=== PATIENT | female | born 1985 | race Caucasian/White ===

== ENCOUNTER 2021-11-26 19:38 | Inpatient (IN) | payer MEDICAID, SELFPAY ==
[2021-11-26] VITALS (15 sets, daily range): BP systolic 110–145; BP diastolic 59–81; PULSE 99–123; TEMP 36.4–37.6; O2SAT 97–98; BMI 27.3
[2021-11-26] MEDS: Lactated Ringers 1,000 ML 200 ML IV (19:30)
[2021-11-26] MEDS: LACTATED RINGERS 500 ML 999 ML IV (19:30)
[2021-11-26 19:52] LABS: Absolute Lymphocyte Count 0.84 X10^3/uL (0.83-4.51); Absolute Neutrophil Count 17.2 X10^3/uL (2.0-7.7); Basophil# 0.06 X10^3/uL; Basophil% 0.3 % (0-1); Eosinophil# 0.01 X10^3/uL; Eosinophils% 0.1 % (0-5); Hematocrit 40.9 % (37-47); Hemoglobin 14.1 g/dL (12.0-15.0); Lymphocyte # 0.84 X10^3/ul (0.83-4.51); Lymphocyte % 4.3 % (19-41); Mean Corp Hgb Conc 34.5 g/dL (32-36); Mean Corpuscular Hgb 33.1 pg (27.0-32.0); Monocyte% 7.1 % (0-10); NRBC Flagged by Analyzer 0 % (0-5); Neutrophil # 17.15 X10^3/uL (2.7-7.7); Neutrophil % 87.4 % (47-70); Platelet Count 185 K/mm3 (150-450); RBC Distribution Width CV 14.2 % (11.6-14.6); RBC Distribution Width SD 49.4 fl (35.1-43.9); Red Blood Count 4.26 M/mm3 (4.2-5.4); White Blood Count 19.6 K/mm3 (4.4-11.0)
[2021-11-26] MEDS: Cefazolin 2 GM in 0.9% Normal Saline 100 ML IV (20:50)
[2021-11-26] MEDS: fentaNYL-bupivacaine (epidural) 100 ML BAG EPIDURAL (21:15)
[2021-11-26 21:48] LABS: Group B Strep DNA By PCR Negative (Negative); Internal Control PASS; Probe Check PASS; Specimen Processing Control PASS
[2021-11-26 22:53] LABS: Mucous, Urine 0 SEEN /hpf (<or=2+); Squamous Epithelial Cells - UA 0 SEEN /hpf (5-10)
[2021-11-26 22:58] LABS: Color, Urine Yellow (Yellow); Glucose, Dipstick Normal (Normal); Leukocyte Esterase-Dipstick Negative /ul (Negative); Nitrite-Dipstick Negative (Negative); Occult Blood-Urine 25 /ul (Negative); Protein-Dipstick 15 mg/dl (Negative); Urine Bilirubin Dipstick Negative (Negative); Urine Clarity Clear (Clear); Urine Urobilinogen Normal (Normal)
--- NOTE | 2021-11-26 23:06 | HP.PCM.OB_ITS ---
HPI - General General Date of Admission: 11/26/21 HPI Narrative YISEL NEGRETE, is a 36 F who presents IAL after arrest of dilation at home and 8 cm for 7 hours. Patient also was requesting additional pain medication from home and therefore her janitorial tech transferred care from home to here. She denies any bleeding or loss of fluid admits good movement. She has had UTI symptoms for the last couple days and has a history of recurrent UTIs. She has not been on any antibiotics. She denies any fevers or low back pain or flank pain other than associated with contractions PFSH PFSH Medical History (Updated 11/26/21 @ 23:[address] Elba Marquez MD) Anxiety Depression Allergy/AdvReac Type Severity Reaction Status Date / Time No Known Allergies Allergy Verified 11/26/21 20:19 Surgical History (Updated 11/26/21 @ 20:38 by Jade Thomas) Hx of appendectomy Social History Smoking Status: Never smoker History Elective abortions Hx Para 0 Spontaneous abortions Hx # Term Pregnancies Ectopic pregnancies Hx # Pregnancies Multiple births # of living children NST FHR Rate Baby A Baseline: 140 Variability:: Moderate Accelerations:: 15 x 15 Decelerations:: None NST Reactive:: Yes FHR Category:: Category I Uterine Activity:: q3-5 ROS Constitutional Constitutional: Reports systems reviewed and no addt'l complaints, except as documented ENT HEENT: Reports systems reviewed and no addt'l complaints, except as documented Cardiovascular Cardiovascular: Reports systems reviewed and no addt'l complaints, except as documented Respiratory/Chest Respiratory/Chest: Reports systems reviewed and no addt'l complaints, except as documented Gastrointestinal Gastrointestinal: Reports systems reviewed and no addt'l complaints, except as d ocumented and nausea; Denies abdominal pain Genitourinary Genitourinary: Reports systems reviewed and no addt'l complaints, except as documented, burning urination, contractions Details: present and frequency (regular ), difficulty urinating, dysuria and movement Details: present Musculoskeletal Musculoskeletal: Reports systems reviewed and no addt'l complaints, except as documented Integumentary Integumentary: Reports as per HPI Neurologic Neurologic: Reports systems reviewed and no addt'l complaints, except as documented Endocrine Endocrinology: Reports systems reviewed and no addt'l complaints, except as documented Vital Signs Vital Signs Vital Signs: 11/26/21 20:27 11/26/21 20:33 11/26/21 20:33 Temperature 97.5 F L Temperature Source Pulse Rate 123 H Blood Pressure 133/77 H BP Systolic 133 BP Diastolic 77 Pulse Ox 11/26/21 20:58 11/26/21 20:58 11/26/21 21:03 Temperature Temperature Source Pulse Rate 104 H Blood Pressure 139/79 H BP Systolic 139 BP Diastolic 79 Pulse Ox 97 11/26/21 21:03 11/26/21 21:03 11/26/21 21:03 Temperature Temperature Source Pulse Rate 104 H 110 H Blood Pressure BP Systolic BP Diastolic Pulse Ox 97 11/26/21 21:09 11/26/21 21:09 11/26/21 21:08 Temperature Temperature Source Pulse Rate 105 H Blood Pressure 133/75 H BP Systolic 133 BP Diastolic 75 Pulse Ox 98 11/26/21 21:13 11/26/21 21:13 11/26/21 21:13 Temperature Temperature Source Pulse Rate 108 H Blood Pressure 122/63 H BP Systolic 122 BP Diastolic 63 Pulse Ox 98 11/26/21 21:18 11/26/21 21:18 11/26/21 21:18 Temperature Temperature Source Pulse Rate 113 H 111 H Blood Pressure 127/67 H BP Systolic 127 BP Diastolic 67 Pulse Ox 11/26/21 21:18 11/26/21 21:23 11/26/21 21:23 Temperature Temperature Source Pulse Rate 110 H Blood Pressure 123/67 H BP Systolic 123 BP Diastolic 67 Pulse Ox 97 11/26/21 21:23 11/26/21 21:23 11/26/21 21:28 Temperature Temperature Source Pulse Rate 110 H 112 H Blood Pressure BP Systolic BP Diastolic Pulse Ox 98 11/26/21 21:28 11/26/21 21:33 11/26/21 21:33 Temperature Temperature Source Pulse Rate 105 H Blood Pressure 145/75 H BP Systolic 145 BP Diastolic 75 Pulse Ox 98 11/26/21 21:33 11/26/21 21:38 11/26/21 21:38 Temperature Temperature Source Pulse Rate 109 H Blood Pressure 139/81 H BP Systolic 139 BP Diastolic 81 Pulse Ox 98 11/26/21 21:38 11/26/21 21:38 11/26/21 21:00 Temperature Temperature Source Temporal Pulse Rate 104 H Blood Pressure BP Systolic BP Diastolic Pulse Ox 98 11/26/21 22:10 11/26/21 22:10 11/26/21 21:00 Temperature 97.5 F L Temperature Source Pulse Rate 99 Blood Pressure 110/59 L BP Systolic 110 BP Diastolic 59 Pulse Ox Weight Weight: 175 lb Body Mass Index (BMI) 27.3 Physical Exam Const alert, oriented x3 and healthy appearing Constitutional Narrative: uncomfortable with contractions HEENT normocephalic and moist oral mucous membranes Head and Scalp: atraumatic Neck full ROM, no lymphadenopathy, supple and thyroid normal General: trachea midline Thyroid: thyroid normal Lymph Lymphatic: no lymphadenopathy noted Chest inspection of chest normal Resp normal respiratory effort Cardio regular rate GI normal to inspection, nondistended, normoactive bowel sounds, soft to palpation and non-tender Inspection: gravid external exam normal Bimanual Exam - Vag & Uterus: uterus non-tender Manual OB Exam: estimated gestational size appropriate, presentation cephalic, dilated, effaced and station Extremity normal to inspection General Extremity: Negative for edema Skin no rashes or lesions noted Neuro deep tendon reflexes 2+ bilaterally Motor Exam: strength 5/5 throughout and clonus absent Psych mental status grossly normal Labs Labs Labs: Blood Type B POSITIVE Antibody Screen NEGATIVE Hct 40.9 % (37-47) Hgb 14.1 g/dL (12.0-15.0) HIV 1&2 Antibody Pending Group B Strep DNA Negative (Negative) Assessment & Plan (1) : (2) Arrested labor: COMMENT: AROM clear fluid discuss pitocin if needed (3) UTI (urinary tract infection): COMMENT: ancef given in labor will switch to keflex po (4) Supervision of normal first : COMMENT: Gudelia Ryan janitorial tech, JOEY during labor 8 cm arrest PLAN: Plan Patient presents IAL, plan expectant management for , pitocin/AROM PRN if needed. Pain management: plans epidural. GBS unknown give ancef for gbs and uti treatment. Management of any complications: none I have reviewed the [facility] and made any clinically relevant updates.
[2021-11-26 23:09] LABS: Ketone-Dipstick 150 mg/dl (Negative); White Blood Cells 0-5 SEEN /hpf (0-5)
[2021-11-26 23:10] LABS: Bacteria 1+ /hpf (None Seen); Red Blood Cells-Urine 0-5 SEEN /hpf (0-5)
[2021-11-26 23:34] LABS: HIV - WCH Non-Reactive (Nonreactive)
[2021-11-27] VITALS (19 sets, daily range): BP systolic 109–137; BP diastolic 58–71; PULSE 89–131; RESP 16–17; TEMP 36.4–37; O2SAT 97–98
[2021-11-27] MEDS: Oxytocin 30 units/NS 500 ml 30 UNITS/500 ML IV.SOLN 334 UNITS IV (00:57)
--- NOTE | 2021-11-27 01:22 | OP.PCM_ITS ---
Assessment & Plan (1) Supervision of normal first : COMMENT: Gudelia Ryan director of residential services, JOEY during labor 8 cm arrest (2) UTI (urinary tract infection): COMMENT: ancef given in labor will switch to keflex po (3) Arrested labor: COMMENT: AROM clear fluid discuss pitocin if needed (4) : (5) Vaginal delivery: COMMENT: SM IAL 40 transfer in labor from director of residential services for 8 cm arrest proceeded to deliver Vaginal Delivery Maternal Presentation Maternal Presentation: Active Labor Operative Information Date of Procedure: 11/27/21 Pre-Operative Diagnosis: IAL Post-Operative Diagnosis: same Surgery / Procedure Performed: Spontaneous Vaginal Delivery Type of Anesthesia: Epidural Special Medications: none Estimated Blood Loss: 500 Fluids Replaced: crystalloid Findings Description of Procedure: Patient began pushing and delivered the head in the KE presentation. The head was delivered atraumatically . The anterior and posterior shoulders delivered without complication followed by the rest of the infant and the was placed on the maternal abdomen. Delayed cord clamping was employed for approximately 60 seconds. Cord was clamped and cut and gentle traction was applied to the cord and the placenta delivered spontaneously immediately following it was noted to be intact with three-vessel cord. The perineum and vagina were inspected and noted to have a second degree laceration repaired in the usual fashion wtih 3-0 rapide. EBL was 500 pitocin given for some atony and massage utilized. Patient and infant tolerated delivery well. Presentation: KE Amniotic Membrane Rupture Type: Artificial Amniotic Fluid Description: Clear Placental Delivery Description: Spontaneous Placenta Disposition: [facility] Cord Vessel Description: 3 Vessels Cord Entanglement: None A Gender: Male Delayed Cord Clamping: Yes Post Vaginal Delivery Medications Given After Delivery: IV Pitocin Episiotomy Description: None Laceration: Perineal Extension/lac and 2nd degree Complication Complications: None Procedures Urinary/Genital [id number]: [id number] Vaginal Delivery+ Care([facility])
--- NOTE | 2021-11-27 01:29 | DCINST_ITS ---
Discharge Instructions Diet Discharge Diet: No restrictions Activity Discharge Activity: Return to Normal Activity, May Drive, May Shower and May Take a Tub Bath (in 4 weeks) May resume sexual activity in: 6-8 weeks (after seen by OB provider) Weight Bearing Status: Full weight bearing Lifting Restrictions: none Dressing / Incision Call your doctor if you observe: Fever of 101 or Higher, Inability to urinate, Using more than 1 pad per hour (for more than 2 hours in a row or more), Shortness of breath, Dizziness, Chest pain and - (headache not controlled with tylenol, change in vision) Follow Up Care When: in 6 weeks for visit, call the office to make the appointment. If you had elevated blood pressures call the office to be seen within 1 week. Test Results: Test results from this visit will be discussed in further detail at your follow- up appointment, if applicable. Discharge Plan Admission Admit Date/Time: 11/26/21 19:38 Attending Provider: Elba Marquez Primary Care Provider: Care Physician,Sirena Primary Discharge Orders/Prescriptions Referrals / Follow Up: Care Physician,No Primary [Primary Care Provider] - Disposition Disposition (needs filled in before D/C Order can be placed): Home, Self Care
[2021-11-27] MEDS: Acetaminophen 500 MG Tablet 1000 MG PO ×2 (05:16→15:37)
[2021-11-27] MEDS: Naproxen 500 MG Tablet PO (05:16)
[2021-11-28 01:46] VITALS: BP 112/62; PULSE 93; RESP 17; TEMP 36.9; O2SAT 97
[2021-11-28 01:48] VITALS: BP 112/62; PULSE 97
[2021-11-28] MEDS: Acetaminophen 500 MG Tablet 1000 MG PO (05:24)
--- NOTE | 2021-11-28 07:42 | PCM.PN.OB ---
Subjective Subjective Patient doing well without complaints. Tolerating PO. Ambulating and voiding without difficulty. Feeding well. Denies chest pain, shortness of breath, calf pain/swelling, fevers, chills, lightheadedness. Objective Data Objective Data Vital Signs: Vital Signs Temp Pulse Resp BP Pulse Ox O2 Del Method 98.5 F 97 17 112/62 97 Room Air 11/28/21 01:46 11/28/21 01:48 11/28/21 01:46 11/28/21 01:48 11/28/21 01:46 11/28/21 01:46 Oxygen Delivery Method Room Air Weight: 175 lb Body Mass Index (BMI) 27.3 Intake & Output: Intake and Output for Last 24 Hours 11/26/21 11/27/21 11/28/21 23:59 23:59 23:59 Intake Total 610 / 610 1500.0 / 1500.0 Output Total 350 / 350 1800 / 1800 Balance 260 / 260 -300.0 / -300.0 Lab / Micro Data Result Diagrams: 11/26/21 19:30 Micro: Microbiology 11/26/21 21:40 Nasal Secretion SARS-CoV-2 Antigen (Rapid) - Final Physical Exam Const alert and oriented x3 HEENT normocephalic Eyes PERRL Neck full ROM Resp normal respiratory effort GI soft to palpation GI Narrative: FF below U Assessment & Plan (1) Vaginal delivery: COMMENT: SHARONDA IAL Keith. 41 transfer in labor from bilingual sales consultant for 8 cm arrest proceeded to deliver PLAN: Plan s/p PPD # 1 1. routine post delivery care 2. breast feeding- support given 3. rh positive 4. rubella immune 5. home today
[2021-11-28 08:05] VITALS: BP 109/63; PULSE 90; RESP 16; TEMP 36.4; O2SAT 98
[2021-11-28 08:07] VITALS: BP 109/63; PULSE 86
--- NOTE | 2021-11-28 10:55 | NURSING ---
Pt to call [facility] to schedule follow up appointment in 6 weeks. Pt okay to be discharged from social work standpoint.
== END 2021-11-28 11:20 | disposition home or self-care (01) | DRG 560 ==
PROVIDERS: Admitting Provider Obstetrics & Gynecology; Visit Provider Obstetrics & Gynecology
DX: O62.1 Secondary uterine inertia (principal); Z37.0 Single live birth; O70.1 Second degree perineal laceration during delivery; Z3A.40 40 weeks gestation of pregnancy
CPT/HCPCS: 59025; 59050; 81001; 85025; 86703; 86850; 86900; 86901; 87081; 87653; 87811; 99218; J7120; G0378

== ENCOUNTER → 2022-01-29 | Outpatient (CLI) | payer MEDICAID, SELFPAY ==
[2022-02-06 15:58] LABS: HPV APTIMA, High Risk Negative (Negative)
== END | disposition home or self-care (01) ==
LOC: LABSPEC 16:30
PROVIDERS: Referring Provider Obstetrics & Gynecology; Visit Provider Obstetrics & Gynecology
DX: Z01.419 Encounter for gynecological examination (general) (routine) without abnormal findings (principal)
CPT/HCPCS: 87624; 88175; G0145

== ENCOUNTER 2022-07-24 13:30 | Outpatient (RCR) | payer MEDICAID, SELFPAY ==
--- NOTE | 2022-05-30 14:07 | HP.PTEVAL ---
Patient's Visit Information YISEL NEGRETE is a 37 year old F referred to Physical Therapy by Latricia Hammond CNM with a diagnosis of RECTOCELE. Date of Evaluation: 05/30/22 Physical Therapist: Nettie Tubbs PT, Cert MDT - Visit Plan Frequency: 1x/Week Duration: 8-12 WKS Plan: POSTURE CORRECTION/STRENGTHENING. PF STRENGTHENING. CORE AND HIP STRENGTHENING. INSTRUCTION IN PROPER BODY MECHANICS FOR LIFTING. INSTRUCTION IN PROPER ABDOMINAL CORE MANAGEMENT AND HEALTHY BLADDER HABBITS. HEP INSTRUCTION. - Subjective Work/Leisure: STAY AT HOME MOM. 5 CHILDREN BETWEEN HERSELF AND . ONE VAGINAL DELIVERY 6 MONTHS AGO. OTHER CHILDREN ARE ADOPTED. Present symptoms: ABOUT A MONTH AGO FELT PRESURE IN VAGINAL AREA AND SAW A SMALL BULGE. INCREASED IN SQUATTING AND DECREASED IN SUPINE. GOT WORSE WITH LIFTING AND STARTED HAVING SOME URINE LEAKING. WENT TO SEE OBGYN ABOUT A WEEK AFTER NOTICING BULGE. DENIES PAIN. Is it getting better, worse or staying the same: I THINK I AM GETTING BETTER. BULGING LESS. LESS PRESSURE AND LESS LEAKING. Disturbed sleep: GETTING UP TO GO TO THE BATHROOM ONE TIME PER NIGHT. Previous history/Previous treatment: H/O 2 KIDNEY INFECTIONS AND ONE BLADDER INFECTION LAST TRIMESTER OF . A LOT OF BLADDER PAIN WITH DELIVERY BUT GONE AFTER DELIVERY. Treatment this episode: CONSULT WITH STAPLE FIBER WASHER AND REFERRAL TO PT. Coughing/sneezing/straining: NONE RECENT. Bowel Incontinence: Patient Denies. PMH/Recent major surgery: UNREMARKABLE. OTHER: BREAST FEEDING. 2ND DEGREE TEAR DURING VAGINAL DELIVERY 6 MONTHS AGO PER PATIENT REPORT. - Objective Sitting/Standing Posture: FAIR. Other Observations: INDEP GAIT AND TRANSFERS. Sensory deficit: TERA LE LIGHT TOUCH SENSATION INTACT AND SYMMETRICAL. ROM deficit: TIGHT TERA HIP ADDUCTORS AND HIP EXTERNAL ROTATORS. Motor deficit: TERA LE'S GROSSLY 5/5 WITH MMT'ING EXCEPT HIPS 4/5. Dural Signs: NEGATIVE TERA LE'S. Lumbar mvmt loss: flex - NIL. ext - MOD. R SG - MIN. L SG - MIN. PATIENT DENIES PAIN WITH LUMBAR ROM TESTING ALL PLANES. Core strength: POOR. Palpation: INTERNAL VAGINAL PF TESTING REVEALS 4/5 PF STRENGTH AND 5 SEC ENDURANCE X 5 REPS. FUNCTIONAL SCREEN: Incontinence Impact Questionnaire Score: 2. Urogenital Distress Inventory Score: 9. TREATMENT: NEUROMUSCULAR REEDUCATION - RETRAINING OF MVMT AND POSTURE FOR SITTING, LYING AND STANDING ACTIVITIES. - Goals Goal 1:: PATIENT WILL HAVE INCREASED PELVIC FLOOR MUSCLE STRENGTH GRADE TO 5/5 Goal Time Frame: 6-8 Weeks Goal 2:: PATIENT WILL DEMONSTRATE 10 CONSISTENT AND CONSECUTIVE 10 SECOND PELVIC FLOOR MUSCLE CONTRACTIONS TO DEMONSTRATE IMPROVED PELVIC FLOOR ENDURANCE. Goal Time Frame: 8-12 Weeks Goal 3:: PATIENT WILL SUCCESSFUL AVOID URINARY LEAKING WITH COUGHING, SNEEZING AND ADL'S. Goal Time Frame: 8-12 Weeks Goal 4:: PATIENT WILL BE INDEP WITH A HEP FOR CONTINUED IMPROVEMENT ONCE FORMAL PHYSICAL THERAPY CONCLUDES. Goal Time Frame: 8-12 Weeks - Anticipated Interventions Patient/Client Instruction: Educate patient on: Condition, Plan of Care, Risk Factors For the Purpose of:: To improve self management Therapeutic Exercise to Include: Strength training, Endurance training, Body mechanics, Postural training, Flexibilty training, Neuromotor development, Dynamic Lumbar Stabilization For the Purpose of:: To improve muscle performance and motor function, To increase tolerance to activity/condition/position, To improve ability of physical actions for home/community/work/leisure Thank you for the opportunity to evaluate your patient. For Medicare and Medicare HMO plans, please review the plan of care and approve it. It will need to be FAXED BACK to us at [phone] for Medicare purposes. For Medicare only, by signing this I certify the plan of care. Please let me know if there are questions or concerns regarding this plan of care. Physician Signature: Date:
--- NOTE | 2022-07-24 14:01 | HP.PTDCSUM ---
It has been my pleasure to treat YISEL NEGRETE referred by Latricia Ziegler CNM, with the diagnosis of RECTOCELE for a total of 9 visit(s). Discharge Date: Please see the following information for a summary of their discharge status. Subjective: PATIENT REPORTS COMPLIANCE WITH HEP. SHE DENIES ANY INCREASED SX'S SINCE STARTING PT AND SHE FEELS LIKE SHE IS OK NOW. SHE REPORTS IT IS NOT HANDY TO BE NOT BE ABLE TO LIFT HEAVY STUFF LIKE THE DOCTOR TOLD HER AND IT IS FRUSTRATING. I THINK IT IS FINE AND IT USUALLY DOESN'T BOTHER ME. PATIENT REPORTS SHE INS'T REALLY HAVING ANY URINE LEAKING. PATIENT REPORTS SHE IS GETTING STRONGER AND ABLE TO LIFT THINGS, LIKE THE BABY IN THE CAR SEAT, WITH LESS ABDOMINAL DISCOMFORT. PATIENT REPORTS SHE FEELS LIKE IT IS JUST A MATTER OF CONTINUEING THE EX'S AT THIS POINT. % Improvement: 95 Objective/Function: PATIENT WAS SEEN TODAY FOR RE-ASSESSMENT OF PROGRESS TOWARD THE SET PT GOALS AND THE NEED FOR FURTHER PHYSICAL THERAPY VS READINESS FOR DISCHARGE. HEP CHECK AND PROGRESSED HEP WITH PELVIC FLOOR GTB LAE'S WITH GOOD RETURN DEMO AND tolerance. FUNCTIONAL SCREEN: Incontinence Impact Questionnaire Score: (5). Urogenital Distress Inventory Score: (8). ALL PT GOALS APPEAR TO HAVE BEEN MET AND PATIENT IS INDEP WITH HEP. D/C RECOMMENDED AND PATIENT AGREEABLE. ENCOURAGED PATIENT TO FOLLOW UP WITH LATRICIA ZIEGLER WITH ANY CONCERNS. Goal 1:: PATIENT WILL HAVE INCREASED PELVIC FLOOR MUSCLE STRENGTH GRADE TO 5/5 Goal Progress: Goal Met Goal 2:: PATIENT WILL DEMONSTRATE 10 CONSISTENT AND CONSECUTIVE 10 SECOND PELVIC FLOOR MUSCLE CONTRACTIONS TO DEMONSTRATE IMPROVED PELVIC FLOOR ENDURANCE. Goal Progress: Goal Met Goal 3:: PATIENT WILL SUCCESSFUL AVOID URINARY LEAKING WITH COUGHING, SNEEZING AND ADL'S. Goal Progress: Goal Met Goal 4:: PATIENT WILL BE INDEP WITH A HEP FOR CONTINUED IMPROVEMENT ONCE FORMAL PHYSICAL THERAPY CONCLUDES. Goal Progress: Goal Met Plan: D/C TO INDEP EX. PATIENT AGREEABLE. If there are questions or concerns regarding this patient's physical therapy, please feel free to call me at [phone]. Thank you for the referral of this patient. Sincerely, Nettie Tubbs, PT, Cert MDT
== END 2022-07-24 14:53 | disposition home or self-care (01) ==
LOC: PT 13:30
PROVIDERS: PCP Family Medicine; Referring Provider Registered Nurse; Visit Provider Registered Nurse
DX: N81.6 Rectocele (principal)
CPT/HCPCS: 97162; 97164; 97530

== ENCOUNTER → 2023-02-24 | Outpatient (CLI) | payer MEDICAID, SELFPAY ==
[2023-02-24 15:56] LABS: Absolute Lymphocyte Count 2.06 X10^3/uL (0.83-4.51); Absolute Neutrophil Count 7.8 X10^3/uL (2.0-7.7); Basophil# 0.05 X10^3/uL; Basophil% 0.5 % (0-1); Eosinophil# 0.17 X10^3/uL; Eosinophils% 1.6 % (0-5); Hematocrit 39.8 % (37-47); Lymphocyte # 2.06 X10^3/ul (0.83-4.51); Mean Corp Hgb Conc 32.7 g/dL (32-36); Mean Corpuscular Hgb 31.4 pg (27.0-32.0); Mean Corpuscular Volume 96.1 fL (81-99); Mean Platelet Vol. 10.5 fl (6.2-12.0); Monocyte# 0.72 X10^3/uL; Monocyte% 6.7 % (0-10); NRBC Flagged by Analyzer 0 % (0-5); Neutrophil # 7.77 X10^3/uL (2.7-7.7); Neutrophil % 71.7 % (47-70); Platelet Count 230 K/mm3 (150-450); RBC Distribution Width CV 13.4 % (11.6-14.6); RBC Distribution Width SD 47.4 fl (35.1-43.9); Red Blood Count 4.14 M/mm3 (4.2-5.4); White Blood Count 10.8 K/mm3 (4.4-11.0)
[2023-02-24 17:10] LABS: NATERA MAILED SPECIMEN
[2023-02-24 17:18] LABS: HIV - WCH Non-Reactive (Nonreactive); Hepatitis B Surface Antigen Non-Reactive (Nonreactive); Hepatitis C Antibody Non-Reactive (Nonreactive); Rubella IgG Reactive (Nonreactive); Syphilis Antibodies Non-reactive
[2023-02-27 08:12] LABS: Chlamydia By Nucleic Acid AMP Negative (Negative); Gonococcus By Nucleic Acid AMP Negative (Negative)
== END | disposition home or self-care (01) ==
PROVIDERS: PCP Family Medicine; Referring Provider Registered Nurse; Visit Provider Registered Nurse
DX: Z34.82 Encounter for supervision of other normal pregnancy, second trimester (principal)
CPT/HCPCS: 36415; 85025; 86703; 86762; 86780; 86803; 86850; 86900; 86901; 87086; 87088; 87340; 87491; 87591

== ENCOUNTER → 2023-06-02 | Outpatient (CLI) | payer MEDICAID, SELFPAY ==
--- OUTSIDE RECORDS SUMMARY | 2023-06-02 11:45 | XMS RPT_ITS | CCD ---
Author Name Unknown Address [address] [place] [address] Organization [facility] Care Team Providers Care Diathermy Equipment Repairer Name Role Phone JENNY PHELAN Referring Unavailab DIANA Love Attending Unavailable ELLY LOVING Primary Care Unavailable ELLY LOVING Primary Care Unavailable SIXTO CONTRERAS Attending Unavailable MARISELA DE LA CRUZ Referring UnavailEFREM Gaines MD Consulting Unavailable MOON JOHNS MD Admitting Unavailable MOON JOHNS MD Primary Care Unavailable MOON JOHNS MD Attending Unavailable PROVIDER, UNKNOWN Consulting Unavailable PROVIDER, UNKNOWN Consulting Unavailable PROVIDER, UNKNOWN Consulting Unavailable Results Test Name Value Interpretation Reference Range Facil ity Encounters Encounter Date Encounter Type Care Provider Facility Start: 05-16-2023 End: 05-16-2023 ambulatory EFREM CROWDER [facility] Start: 05-12-2023 End: 05-12-2023 ambulatory ELLY LOVING [facility] Start: 04-01-2023 End: 04-01-2023 ambulatory JENNY PHELAN [facility] Payers Date Payer Category Payer Unknown [id number] 1986 Unknown [id number] 1986 Unknown [id number] Unknown [id number] Summary Purpose Family History No Family History Records FoundNo Family History Records Found Advance Directives No Advanced Directives Records FoundNo Advanced Directives Records Found Additional Source Comments INFORMATION SOURCE (unrecogn ized section and content) DATE CREATED AUTHOR AUTHOR'S ORGANIZ ATION 05/17/2023 [facility] FOR RECORDS PERTAINING TO PATIENTS WHO ARE OR HAVE BEEN ENROLLED IN A CHEMICAL DEPENDENCY/SUBSTANCEABUSE PROGRAM, SOME INFORMATION MAY BE OMITTED. This clinical summary was aggregated from multiple sources. Caution should be exercised in using it in the provision of clinical care. This summary normalizes information from multiple sources, and as a consequence, information in this document may materially change the coding, format and clinical context of patient data. In addition, data may be omitted in some cases. CLINICAL DECISIONS SHOULD BE BASED ON THE PRIMARY CLINICAL RECORDS. [employer] [facility]. provides no warranty or guarantee of the accuracy or completeness of information in this document.
[2023-06-02 11:59] LABS: Absolute Lymphocyte Count 1.53 X10^3/uL (0.83-4.51); Basophil# 0.04 X10^3/uL; Basophil% 0.3 % (0-1); Eosinophil# 0.11 X10^3/uL; Eosinophils% 0.9 % (0-5); Hematocrit 35.7 % (37-47); Hemoglobin 11.3 g/dL (12.0-15.0); Lymphocyte # 1.53 X10^3/ul (0.83-4.51); Lymphocyte % 13.1 % (19-41); Mean Corp Hgb Conc 31.7 g/dL (32-36); Mean Corpuscular Hgb 30.2 pg (27.0-32.0); Mean Corpuscular Volume 95.5 fL (81-99); Mean Platelet Vol. 9.9 fl (6.2-12.0); Monocyte% 7.7 % (0-10); NRBC Flagged by Analyzer 0 % (0-5); Neutrophil # 8.98 X10^3/uL (2.7-7.7); Neutrophil % 76.6 % (47-70); Platelet Count 193 K/mm3 (150-450); RBC Distribution Width CV 13.3 % (11.6-14.6); RBC Distribution Width SD 46.9 fl (35.1-43.9); Red Blood Count 3.74 M/mm3 (4.2-5.4); White Blood Count 11.7 K/mm3 (4.4-11.0)
[2023-06-02 12:24] LABS: Glucose Challenge Gest 1H 50g 98 mg/dL (70-140)
[2023-06-02 13:15] LABS: HIV - WCH Non-Reactive (Nonreactive); Syphilis Antibodies Non-reactive
== END | disposition home or self-care (01) ==
LOC: PAVLAB 11:09
PROVIDERS: PCP Family Medicine; Referring Provider Registered Nurse; Visit Provider Registered Nurse
DX: O09.90 Supervision of high risk pregnancy, unspecified, unspecified trimester (principal); Z13.1 Encounter for screening for diabetes mellitus; Z3A.00 Weeks of gestation of pregnancy not specified
CPT/HCPCS: 36415; 82950; 85025; 86703; 86780

== ENCOUNTER 2023-06-24 19:30 | Outpatient (CLI) | payer MEDICAID, SELFPAY ==
[2023-06-24 19:39] VITALS: PULSE 120; O2SAT 100
[2023-06-24 19:43] VITALS: BP 146/73; PULSE 114; TEMP 36.7
[2023-06-24 20:00] VITALS: BP 140/76; PULSE 111
[2023-06-24 20:15] VITALS: BP 135/73; PULSE 106
[2023-06-24 20:15] LABS: Bacteria 0 SEEN /hpf (None Seen); Mucous, Urine 0 SEEN /hpf (<or=2+); Red Blood Cells-Urine 0 SEEN /hpf (0-5)
[2023-06-24 20:17] VITALS: BMI 29.7
[2023-06-24 20:19] LABS: Color, Urine Yellow (Yellow); Glucose, Dipstick Normal (Normal); Ketone-Dipstick 5 mg/dl (Negative); Leukocyte Esterase-Dipstick 100 /ul (Negative); Nitrite-Dipstick Negative (Negative); Occult Blood-Urine Negative /ul (Negative); Protein-Dipstick 15 mg/dl (Negative); Urine Bilirubin Dipstick Negative (Negative); Urine Clarity Clear (Clear); Urine Urobilinogen Normal (Normal); Urine pH 6.5 (5.0 - 8.0)
[2023-06-24 20:27] LABS: Squamous Epithelial Cells - UA 0-5 SEEN /hpf (5-10); White Blood Cells 0-5 SEEN /hpf (0-5)
[2023-06-24 20:29] VITALS: BP 131/72; PULSE 97
[2023-06-24 20:39] LABS: ROM Internal Control Test YES-OK TO RESULT pt. (Internal QC); ROM Patient Test Negative (Negative)
--- OUTSIDE RECORDS SUMMARY | 2023-06-24 21:04 | XMS RPT_ITS | CCD ---
Author Name Unknown Address [address] [place] [address] Organization [facility] Care Team Providers Care Die Cleaner Name Role Phone EFREM CROWDER MD Consulting Unavailable CLUTTER, MOON HE Admitting Unavailable CLUTTER, MOON HE Primary Care Unavailable CLUTTER, MOON HE Attending Unavailable PROVIDER, UNKNOWN Consulting Unavailable PROVIDER, UNKNOWN Consulting Unavailable PROVIDER, UNKNOWN Consulting Unavailable LOVING, ELLY F Primary Care Unavailable JENNY PHELAN Referring Unavailab DIANA Love Attending Unavailable LOVING, ELLY F Primary Care Unavailable SIXTO CONTRERAS Attending Unavailable MARISELA DE LA CRUZ Referring UnavailMARISELA Rodrigez Referring UnavailINGRID Roach Attending Unavailable LOVING, ELLY F Primary Care Unavailable JENNY PHELAN Referring Unavailab INGRID Yost Attending Unavailable LOVING, ELLY F Primary Care Unavailable Elana Maciel CNM Unavailable Problems Active Problems Problem Classification Problem Date Documented Da te Episodic/Chronic Administrative/social admission (2 sources) Patient encounter status; Translations: [Counseling, unspecified] 06-16-2023 Episodic Past or Other Problems Problem Classification Problem Date Documented Da te Episodic/Chronic Unclassified (1 source) [facility] pt - This patient is currently under the care of [facility] and is with twins, they said they will allow her to try a vaginal delivery but they are very picky ( Dr. Hudson Boles)patient is here today to discuss transferring care to us, because patient really wants to try for a vaginal delivery G 2 P 1 A 0 L 1(pt has 4 other kids with her that she did adopt, her had lost his in 2019 and she adopted those 4 kids)[facility] 08/25/2023 06-16-2023 Results Test Name Value Interpretation Reference Range Facil ity Vital Signs Date Time Vital Sign Value Performing Clinician Evelyn lity 06-16-2023 15:03-0500 Body height 170.18 cm Crystal Uptain CNM Work Phone: [employer] 06-16-2023 15:03-0500 Body mass index (BMI) [Ratio] 29.6 kg/m2 Crystal Uptain CNM Work Phone: [employer] 06-16-2023 15:03-0500 Body surface area Derived from formula 1.97 m2 [employer] Uptain CNM Work Phone: [employer] 06-16-2023 15:03-0500 Body weight 85.73 kg Crystal Uptain CNM Work Phone: [employer] 06-16-2023 15:03-0500 Diastolic blood pressure 69 mm[Hg] Crystal Uptain CNM Work Phone: [employer] Encounters Encounter Date Encounter Type Care Provider Facility Start: 06-16-2023 End: 06-16-2023 Office outpatient new 30 minutes Crystal Uptain CNM Work Phone: [email or web address] Start: 06-02-2023 End: 06-02-2023 ambulatory JENNY PHELAN [facility] Start: 05-16-2023 End: 05-16-2023 ambulatory EFREM CROWDER [facility] Start: 05-12-2023 End: 05-12-2023 ambulatory ELLY [facility] Start: 04-01-2023 End: 04-01-2023 ambulatory ELLY [facility] Procedures Date Procedure Procedure Detail Performing Clinician Start: 05-05-1998 End: 05-05-1998 Appendectomy Crystal Uptain CNM Work Phone: Payers Date Payer Category Payer Unknown [id number] 2.16.8 [id number] 1986 Unknown [id number] 2.16. [id number] 1986 Unknown [id number] 2.16. [id number] 1986 Unknown [id number] 2.16. [id number] 1986 Unknown [id number] 2.16. [id number] Unknown [id number] Social History Date Type Detail Facility Child(chela) Child(chela) [facility]; [facility] Female [facility]; [facility] Work Phone: Tobacco smoking consumption unknown [employer]; [employer] Work Phone: Summary Purpose Family History Hemophilia Status:Active Comments:Negativ e Family History Of. Advance Directives No Advanced Directives Records FoundNo Advanced Directives Records Found Additional Source Comments INFORMATION SOURCE (unrecogn ized section and content) DATE CREATED AUTHOR AUTHOR'S JONNATHAN ATBRENDA 06/03/2023 [facility] FOR RECORDS PERTAINING TO PATIENTS WHO ARE [...] BE BASED ON THE PRIMARY CLINICAL RECORDS. [employer] provides no warranty or guarantee of the accuracy or completeness of information in this document.
--- OUTSIDE RECORDS SUMMARY | 2023-06-24 21:04 | XMS RPT_ITS | CCD ---
Author Name Unknown Address [address] [place] [id number] Organization [facility] Care Team Providers Care Mortgage Clerk Name Role Phone EFREM CROWDER MD Consulting [...] Documented Da te Episodic/Chronic Unclassified (1 source) [facility] pt - This patient is currently under the care of [facility] and is with twins, they said [...] 170.18 cm Crystal Uptain CNM Work Phone: [employer]; [facility] 06-16-2023 15:03-0500 Body mass index (BMI) [Ratio] 29.6 kg/m2 Crystal Uptain CNM Work Phone: [employer]; [facility] 06-16-2023 15:03-0500 Body surface area Derived from formula 1.97 m2 [employer] Uptain CNM Work Phone: [employer]; [facility] 06-16-2023 15:03-0500 Body weight 85.73 kg Crystal Uptain CNM Work Phone: [employer]; [employer] 06-16-2023 15:03-0500 Diastolic blood pressure 69 mm[Hg] Crystal Uptain CNM Work Phone: [employer]; [employer] Encounters Encounter Date Encounter Type Care Provider Facility Start: 06-16-2023 End: 06-16-2023 Office outpatient new 30 minutes Crystal Uptain CNM Work Phone: [employer] Start: 06-02-2023 End: 06-02-2023 ambulatory JENNY PHELAN [facility] Start: 05-16-2023 End: 05-16-2023 ambulatory FEREM CROWDER [facility] Start: 05-12-2023 End: 05-12-2023 ambulatory ELLY Rodriguez [facility] Start: 04-01-2023 End: 04-01-2023 ambulatory ELLY Rodriguez [facility] Procedures Date Procedure Procedure Detail Performing Clinician Start: 05-05-1998 End: 05-05-1998 Appendectomy Crystal Uptain CNM Work Phone: Payers Date Payer Category Payer Unknown [id number] 2.16.8 [id number] 1986 Unknown [id number] 2.16. [id number] 1986 Unknown [id number] 2.16. [id number] 1986 Unknown [id number] 2.16. [id number] 1986 Unknown [id number] 2.16. [id number] Unknown [id number] Social History Date Type Detail Facility Child(chela) Child(chela) [facility]; [facility] Female [facility]; [facility] Work Phone: Tobacco smoking consumption unknown [facility]; [employer] Work Phone: Summary Purpose Family History Hemophilia Status:Active Comments:Negativ e Family History Of. Advance Directives No Advanced Directives Records FoundNo Advanced Directives Records Found Additional Source Comments INFORMATION SOURCE (unrecogn ized section and content) DATE CREATED AUTHOR AUTHOR'S JONNATHAN ATBRENDA 06/03/2023 [facility] FOR RECORDS PERTAINING TO PATIENTS WHO [...] BE BASED ON THE PRIMARY CLINICAL RECORDS. [employer]. provides no warranty or guarantee of the accuracy or completeness of information in this document.
--- NOTE | 2023-07-01 08:13 | OB.TRI.PN ---
Progress Notes Date of Service: 06/24/23 Progress Note: Patient presents for triage evaluation secondary to vaginal discharge FHT: 130/145 Moderate variability reactive no decelerations category I tracing [place]: none Contractions Assessment and plan: Rom neg, Reactive NST, reassuring maternal and status patient, Dr Marquez on unit and reviewed tracing discharged to home to follow-up in office. See problem list details for additional plan information. Laboratory Studies: Laboratory Tests 06/24/23 06/24/23 Range/Units 20:09 20:00 Urine Color Yellow (Yellow) Urine Clarity Clear (Clear) Urine pH 6.5 (5.0 - 8.0) Ur Specific [place] 1.020 (1.002-1.030) Urine Protein 15 H (Negative) mg/dl Urine Glucose (UA) Normal (Normal) mg/dl Urine Ketones 5 H (Negative) mg/dl Urine Occult Blood Negative (Negative) /ul Urine Nitrite Negative (Negative) Urine Bilirubin Negative (Negative) mg/dL Urine Urobilinogen Normal (Normal) mg/dl Ur Leukocyte Esterase 100 H (Negative) /ul Urine RBC 0 SEEN (0-5) /hpf Urine WBC 0-5 SEEN (0-5) /hpf Ur Squamous Epith Cells 0-5 SEEN (5-10) /hpf Urine Bacteria 0 SEEN (None Seen) /hpf Urine Mucus 0 SEEN (<or=2+) /hpf Vag Amniotic Fld Detect Negative (Negative) Charges/Coding Multi Select Codes Urinary/Genital Urinary/Genital CPT Codes: 84996-84 non-stress test Interp Assessment & Plan (1) Vaginal discharge: COMMENT: ROM neg (2) IUGR (intrauterine growth restriction): COMMENT: A- AC 7%ile overall 36%ile, twins with 15% discordance. B normal percentiles. patient declined twice weekly testing at this time, agreed to fu growth US on 06/30 (3) Advanced maternal age in : COMMENT: nl genetic screening. (4) Supervision of high-risk : QUALIFIERS: Trimester: third trimester Qualified Code(s): O09.93 - Supervision of high risk , unspecified, third trimester COMMENT: PRR AYANA 08/25/2023 Girl/Boy PC:calin. :Keven. (5) Twin : QUALIFIERS: Multiple gestation type: dichorionic and diamniotic Trimester: third trimester Qualified Code(s): O30.043 - Twin , dichorionic/diamniotic, third trimester COMMENT: Di- di twins. confirmed on nipt. - normal anatomy scan. IUGR needs additional testing. (6) : QUALIFIERS: Weeks of gestation: 32 weeks Qualified Code(s): Z3A.32 - 32 weeks gestation of COMMENT: NIPT low risk. declined carrier screen.nl anatomy. (7) Rectocele: (8) UTI (urinary tract infection): COMMENT: ancef given in labor; negative lab. Defer pp antibiotic
== END 2023-06-24 20:54 | disposition home or self-care (01) ==
LOC: WPOUT 19:37 → WP 19:37
PROVIDERS: PCP Family Medicine; Visit Provider Advanced Practice Midwife
DX: O99.891 Other specified diseases and conditions complicating pregnancy (principal); N89.8 Other specified noninflammatory disorders of vagina; Z3A.32 32 weeks gestation of pregnancy; O36.5930 Maternal care for other known or suspected poor fetal growth, third trimester, not applicable or unspecified; O30.043 Twin pregnancy, dichorionic/diamniotic, third trimester; O34.63 Maternal care for abnormality of vagina, third trimester; O23.43 Unspecified infection of urinary tract in pregnancy, third trimester
CPT/HCPCS: 59025; 59050; 81001; 84112; 87086; 87088; 99221; G0378

== ENCOUNTER → 2023-07-17 | Outpatient (CLI) | payer MEDICAID, SELFPAY ==
[2023-07-17 13:33] LABS: Absolute Lymphocyte Count 1.56 X10^3/uL (0.83-4.51); Absolute Neutrophil Count 8.3 X10^3/uL (2.0-7.7); Basophil# 0.05 X10^3/uL; Basophil% 0.4 % (0-1); Eosinophil# 0.13 X10^3/uL; Eosinophils% 1.1 % (0-5); Hematocrit 38.8 % (37-47); Hemoglobin 12.1 g/dL (12.0-15.0); Lymphocyte # 1.56 X10^3/ul (0.83-4.51); Lymphocyte % 13.7 % (19-41); Mean Corp Hgb Conc 31.2 g/dL (32-36); Mean Corpuscular Volume 89.8 fL (81-99); Mean Platelet Vol. 10.2 fl (6.2-12.0); Monocyte# 1.21 X10^3/uL; Monocyte% 10.7 % (0-10); NRBC Flagged by Analyzer 0 % (0-5); Neutrophil % 73.2 % (47-70); Platelet Count 193 K/mm3 (150-450); RBC Distribution Width CV 14.8 % (11.6-14.6); RBC Distribution Width SD 48.8 fl (35.1-43.9); Red Blood Count 4.32 M/mm3 (4.2-5.4); White Blood Count 11.4 K/mm3 (4.4-11.0)
--- OUTSIDE RECORDS SUMMARY | 2023-07-17 20:41 | XMS RPT_ITS | CCD ---
Author Name Unknown Address [address] [place] [address] Organization [facility] Care Team Providers Care Tape Maker Name Role Phone EFREM CROWDER MD Consulting Unavailable CLUTTER, MOON HE Admitting Unavailable CLSANTOS, MOON HE Primary Care Unavailable NAT, MOON HE Attending Unavailable PROVIDER, UNKNOWN Consulting Unavailable PROVIDER, UNKNOWN Consulting Unavailable PROVIDER, UNKNOWN Consulting Unavailable Elana Maciel CNM Unavailable JENNY PHELAN Referring Unavailab DIANA Love Attending Unavailable LOVING, ELLY F Primary Care Unavailable MARISELA DE LA CRUZ Referring Unavailabl e LOVING, ELLY F Primary Care Unavailable SIXTO CONTRERAS Attending Unavailable MARISELA DE LA CRUZ Referring Unavailabl e INGRID BRUNER Attending Unavailable LOVING, ELLY F Primary Care Unavailable JENNY PHELAN Referring Unavailab le INGRID BRUNER Attending Unavailable LOVING, ELLY F Primary Care Unavailable JENNY PHELAN Referring Unavailab DIANA Love Attending Unavailable LOVING, ELLY F Primary Care Unavailable JENNY PHELAN Referring Unavailab le LOVING, ELLY F Primary Care Unavailable LOVING, ELLY F Attending Unavailable Problems Active Problems Problem Classification Problem Date Documented Da te Episodic/Chronic Administrative/social admission (2 sources) Patient encounter status; Translations: [Counseling, unspecified] 06-16-2023 Episodic Past or Other Problems Problem Classification Problem Date Documented Da te Episodic/Chronic Unclassified (1 source) [facility] pt - This patient is currently under the care of [facility] and is with twins, they said [...] in 2019 and she adopted those 4 kids)[facility] 08/25/2023 06-16-2023 Results Test Name Value Interpretation Reference Range Facil ity Vital Signs Date Time Vital Sign Value Performing Clinician Evelyn winn 06-16-2023 15:03-0500 Body height 170.18 cm [employer] Uptain CNM Work Phone: [employer]; [employer] 06-16-2023 15:03-0500 Body mass index (BMI) [Ratio] 29.6 kg/m2 [employer] Uptain CNM Work Phone: [employer]; [employer] 06-16-2023 15:03-0500 Body surface area Derived from formula 1.97 m2 [employer] Uptain CNM Work Phone: [employer]; [employer] 06-16-2023 15:03-0500 Body weight 85.73 kg [employer] Uptain CNM Work Phone: [employer]; [employer] 06-16-2023 15:03-0500 Diastolic blood pressure 69 mm[Hg] [employer] Uptain CNM Work Phone: [employer]; [employer] Encounters Encounter Date Encounter Type Care Provider Facility Start: 07-14-2023 End: 07-14-2023 ambulatory JENNY Chand [facility] Start: 06-30-2023 End: 06-30-2023 ambulatory JENNY R [facility] Start: 06-16-2023 End: 06-16-2023 Office outpatient new 30 minutes Crystal Uptain CNM Work Phone: [employer] Start: 06-02-2023 End: 06-02-2023 ambulatory JENNY R [facility] Start: 05-16-2023 End: 05-16-2023 ambulatory EFREM CROWDER [facility] Start: 05-12-2023 End: 05-12-2023 ambulatory MARISELA DE LA CRUZ [facility] Start: 04-01-2023 End: 04-01-2023 ambulatory JENNY Mannie PHELAN [facility] Procedures Date Procedure Procedure Detail Performing Clinician Start: 05-05-1998 End: 05-05-1998 Appendectomy Elana Maciel CNM Work Phone: Payers Date Payer Category Payer Unknown [id number] 2.16.8 [id number] 1986 Unknown [id number] 2.16. [id number] 1986 Unknown [id number] 2.16. [id number] 1986 Unknown [id number] 2.16. [id number] 1986 Unknown [id number] 2.16. [id number] 1986 Unknown [id number] 2.16. [id number] 1986 Unknown [id number] 2.16. [id number] Unknown [id number] Social History Date Type Detail Facility Child(chela) Child(chela) [employer] Female [employer] Work Phone: Tobacco smoking consumption unknown [employer] Work Phone: Summary Purpose Family History No Family History Records Found Hemophilia Status:Active Comments:Negativ e Family History Of. Advance Directives No Advanced Directives Records FoundNo Advanced Directives Records Found Additional Source Comments INFORMATION SOURCE (unrecogn ized section and content) DATE CREATED AUTHOR AUTHOR'S ORGANIZ ATION 07/14/2023 [facility] FOR RECORDS PERTAINING TO PATIENTS WHO ARE [...] BE BASED ON THE PRIMARY CLINICAL RECORDS. [employer] [facility]. provides no warranty or guarantee of the accuracy or completeness of information in this document.
== END | disposition home or self-care (01) ==
PROVIDERS: PCP Family Medicine; Referring Provider Obstetrics & Gynecology; Visit Provider Obstetrics & Gynecology
DX: O99.019 Anemia complicating pregnancy, unspecified trimester (principal); Z3A.00 Weeks of gestation of pregnancy not specified
CPT/HCPCS: 36415; 85025

== ENCOUNTER → 2023-08-06 | Outpatient (CLI) | payer MEDICAID, SELFPAY ==
[2023-08-06 16:13] LABS: Protein, Urine (Random) 7.4 mg/dL (<11.9); Protein:Creat Ratio 398 mg/g CRE (0-200)
--- NOTE | 2023-08-06 17:58 | NURSING ---
pT CALLED IN AND IS AWARE OF HER PROTEIN CREATINE ELEVATED. HER AND HER HAVE DECIDED TO NOT COME IN TO BE INDUCED. SHE STATES SHE IS GOING TO ANOTHER [facility] TOMORROW TO HAVE LABS DRAW FOR LIVER ENZYMES FOR A SECOND OPINION. sHE DOES NOT WANT TO COME HERE BEING THAT THE OFFICE WANTS HER TO BE INDUCE AND THEY HAVE CHOOSE NOT TO DO THAT AT THIS TIME. SHE WILL BE IN CONTACT AT SOMETIME WITH DR PHELAN. NURSE DID EXPLAIN TO HER THAT HER RATIO WAS ELEVATED FOR PRE E. STATES SHE WILL MONITOR HER BLOOD PRESSURE AT HOME.
== END | disposition home or self-care (01) ==
LOC: LABSPEC 15:19
PROVIDERS: PCP Family Medicine; Referring Provider Obstetrics & Gynecology; Visit Provider Obstetrics & Gynecology
DX: O16.9 Unspecified maternal hypertension, unspecified trimester (principal); Z3A.00 Weeks of gestation of pregnancy not specified
CPT/HCPCS: 82570; 84156